=== PATIENT | male | born 1975 | race Caucasian/White ===

== ENCOUNTER 2016-12-16 09:36 | Emergency (ER) | payer SELFPAY ==
[~2016-12-16] VITALS: Ht 170.2 cm; Wt 90.0 kg
[~2016-12-16 09:36] MED LIST: CITA20 PO; IBUP600 PO; OMPR20CCR PO; VITA100L SUCK-ON
[2016-12-16 09:38] VITALS: BP 159/86; PULSE 87; RESP 16; TEMP 97.6; O2SAT 95
[2016-12-16] MEDS ORDERED: CEPH-460 PO (10:00)
[2016-12-16] MEDS ORDERED: CEPHALEXIN MONOHYDRATE 500 MG CAP PO ONE (10:00)
[2016-12-16] MEDS ORDERED: SULFAMETHOXAZOLE-TRIMETHOPRIM DS 800-160 MG TAB PO ONE (10:00)
[2016-12-16] MEDS ORDERED: BACT800T5 PO (10:00)
--- NOTE | 2016-12-16 10:04 | PD ---
HPI Chief Complaint: Skin Problem Time Seen by Provider: 09:57 Travel History International Travel<30 days: No Contact w/Intl Traveler<30days: No Traveled to known affect area: No History of Present Illness HPI 41-year-old male presents to the emergency department for evaluation of possible infection to his right fourth finger. He states he cut his finger with a knife on the dorsal surface over the PIP joint 2 weeks ago. He had some drainage from the area. However, he woke up this morning with a blister to the proximal aspect of the right fourth finger with some mild surrounding erythema. He states he had MRSA in the past and had IV antibiotics so he was concerned. He denies any fevers or chills. He does report a history reflux. He currently takes Prilosec, Celexa, Vistaril. Patient denies any history of IV drug use. No other complaints. Patient states his tetanus immunization is up- to-date. PFSH Past Medical History Depression: Yes GERD: Yes Respiratory: Yes (asthma) Social History Alcohol Use: No Tobacco Use: Yes Substance Use: No Allergies-Medications (Allergen,Severity, Reaction): Coded Allergies: Penicillin (Verified Allergy, Severe, 12/16/16) Reported Meds & Prescriptions Reported Meds & Active Scripts Active Review of Systems Except as stated in HPI: all other systems reviewed are Neg Physical Exam Narrative GENERAL: Well-developed well-nourished male patient, ambulatory. Afebrile. SKIN: Warm and dry. Patient has a small blister noted to the proximal aspect of the right fourth finger with mild surrounding erythema. No fluctuance or induration. No lymphangiitis. HEAD: Normocephalic. Atraumatic. EYES: No scleral icterus. No injection or drainage. NECK: Supple, trachea midline. No JVD or lymphadenopathy. CARDIOVASCULAR: Regular rate and rhythm without murmurs, gallops, or rubs. RESPIRATORY: Breath sounds equal bilaterally. No accessory muscle use. Lungs sounds clear to auscultation. GASTROINTESTINAL: Abdomen soft, non-tender, nondistended. MUSCULOSKELETAL: No cyanosis, or edema. Patient has full range of motion of all digits of the right hand. Patient has a normal grasp strength in the right hand has full sensation to distal right upper extremity. BACK: Nontender without obvious deformity. No CVA tenderness. Data Data Last Documented VS Vital Signs Date Time Temp Pulse Resp B/P Pulse Ox O2 Delivery O2 Flow Rate FiO2 12/16/16 09:38 97.6 87 16 159/86 95 MDM Medical Decision Making Medical Screen Exam Complete: Yes Emergency Medical Condition: Yes Medical Record Reviewed: Yes Differential Diagnosis Abscess versus cellulitis versus blister Narrative Course 41-year-old male presents to the emergency department for evaluation of possible infection to his right fourth finger. Physical exam is consistent with mild cellulitis. Patient is given first dose of Bactrim and Keflex and will be discharged with a prescription for Bactrim and Keflex. He is instructed on proper wound care. The patient is agreeable to this plan. He is instructed to return for any worsening symptoms. Diagnosis Primary Impression: Cellulitis of finger of right hand Referrals: Primary Care Physician call for appointment Patient Instructions: Cellulitis (ED), General Instructions Additional Instructions: Take antibiotics as directed until gone. Bactrim is free at [facility]. Keflex is $4 at [facility]. Clean twice daily with soap and water and apply OTC antibiotic ointment. Warm, moist compresses. Follow up with a primary care provider. Return to the emergency department for any acute, worsening of symptoms. Med/Other Pt SpecificInfo: Prescription(s) given Scripts Cephalexin (Keflex)500 Mg [id number] Mg PO Q6H 10 Days Ref 0 Prov:Lili Mcclure 12/16/16 Sulfamethoxazole-Trimethoprim (Bactrim DS)800-160 Mg Tab1 Tab PO BID #20 TAB Ref 0 Prov:Lili Mcclure 12/16/16 Disposition: 01 DISCHARGE HOME Condition: Stable Lili Mcclure Dec 16, 2016 10:04
== END 2016-12-16 10:54 | disposition home or self-care (01) ==
LOC: NEPB 09:36
DX: L03.011 Cellulitis of right finger (principal)
CPT/HCPCS: 99283

== ENCOUNTER 2016-12-30 11:44 | Emergency (ER) | payer SELFPAY ==
[~2016-12-30] VITALS: Ht 170.2 cm; Wt 90.0 kg
[~2016-12-30 11:44] MED LIST changes: +BACT800T5 PO; +CEPH-460 PO; -CITA20 PO; -IBUP600 PO; -OMPR20CCR PO; -VITA100L SUCK-ON
[2016-12-30 11:46] VITALS: BP 129/86; PULSE 92; RESP 12; TEMP 98.1; O2SAT 95
[2016-12-30 12:30] VITALS: BP 123/75; PULSE 85; RESP 18; TEMP 98.6; O2SAT 96
--- NOTE | 2016-12-30 12:40 | PD ---
HPI . suicide ideation without a plan Chief Complaint: Psychiatric Symptoms Time Seen by Provider: 12:40 Travel History International Travel<30 days: No Contact w/Intl Traveler<30days: No Traveled to known affect area: No History of Present Illness HPI 41-year-old male with history of polysubstance abuse here after he attempted to go to [facility] to enroll in detox program. Apparently patient went to [facility] and was told that there were no beds available. He decided to call a facility in [place] and was transferred to the police and brought to the hospital for suicide ideation. Patient states he is a binge drinker and had 4 days of heavy drinking. He also used cocaine, which he does frequently. Additionally he admits to using heroin and states he may have overdosed as he woke up on the floor with shoulder pain and left eyebrow pain. Today he denies any chest pain, shortness of breath, nausea, vomiting, diaphoresis, abdominal pain, or fatigue. He admits to some left shoulder pain only. PFSH Past Medical History Depression: Yes GERD: Yes Respiratory: Yes (asthma) Social History Alcohol Use: No Tobacco Use: Yes Substance Use: No Allergies-Medications (Allergen,Severity, Reaction): Coded Allergies: Penicillin (Verified Allergy, Severe, 12/16/16) Reported Meds & Prescriptions Reported Meds & Active Scripts Active Keflex (Cephalexin) 500 Mg Cap 500 Mg PO Q6H 10 Days Bactrim DS (Sulfamethoxazole-Trimethoprim) 800-160 Mg Tab 1 Tab PO BID Review of Systems General / Constitutional: No: Fever Eyes: No: Visual changes HENT: No: Headaches Cardiovascular: No: Chest Pain or Discomfort Respiratory: No: Shortness of Breath Gastrointestinal: No: Abdominal Pain Genitourinary: No: Dysuria Musculoskeletal: Positive: Pain (left shoulder pain) Skin: No Rash Neurologic: No: Weakness Psychiatric: No: Depression Endocrine: No: Polydipsia Hematologic/Lymphatic: No: Easy Bruising Physical Exam Narrative GENERAL: AAO x 3, no acute distress, Well-nourished, well-developed patient. SKIN: Warm and dry. No visible rashes or bruising. HEAD: Normocephalic and atraumatic. EYES: No scleral icterus. No injection or drainage. EOM intact, PERRLA. Small abrasion over left eye healed without any evidence of cellulitis. ENT: No nasal drainage noted. Mucous membranes pink. Airway patent. NECK: Supple, trachea midline. No JVD. CARDIOVASCULAR: Regular rate and rhythm without murmurs, gallops, or rubs. RESPIRATORY: Breath sounds equal bilaterally. No accessory muscle use. No rhonchi or rales. GASTROINTESTINAL: Abdomen soft, non-tender, nondistended. EXTREMITIES: No cyanosis or edema. B/L shoulder with no deformities. Full ROM. No crepitus. No signs of dislocation. BACK: Nontender without obvious deformity. No CVA tenderness. PSYCH: AAO x 3, normal affect. Data Data Last Documented VS Vital Signs Date Time Temp Pulse Resp B/P Pulse Ox O2 Delivery O2 Flow Rate FiO2 12/30/16 12:30 98.6 85 18 123/75 96 Room Air Orders Complete Blood Count With Diff (12/30/16 13:00) Comprehensive Metabolic Panel (12/30/16 13:00) Psych Screen (12/30/16 13:00) Drug Screen, Random Urine (12/30/16 13:00) Labs Laboratory Tests Test 12/30/16 12:40 White Blood Count 9.3 TH/MM3 Red Blood Count 4.90 MIL/MM3 Hemoglobin 14.5 GM/DL Hematocrit 41.4 % Mean Corpuscular Volume 84.5 FL Mean Corpuscular Hemoglobin 29.6 PG Mean Corpuscular Hemoglobin 35.0 % Concent Red Cell Distribution Width 13.0 % Platelet Count 198 TH/MM3 Mean Platelet Volume 8.5 FL Neutrophils (%) (Auto) 63.4 % Lymphocytes (%) (Auto) 24.6 % Monocytes (%) (Auto) 9.3 % Eosinophils (%) (Auto) 2.6 % Basophils (%) (Auto) 0.1 % Neutrophils # (Auto) 5.9 TH/MM3 Lymphocytes # (Auto) 2.3 TH/MM3 Monocytes # (Auto) 0.9 TH/MM3 Eosinophils # (Auto) 0.2 TH/MM3 Basophils # (Auto) 0.0 TH/MM3 CBC Comment DIFF FINAL Differential Comment Sodium Level 135 MEQ/L Potassium Level 3.7 MEQ/L Chloride Level 101 MEQ/L Carbon Dioxide Level 30.2 MEQ/L Anion Gap 4 MEQ/L Blood Urea Nitrogen 9 MG/DL Creatinine 0.96 MG/DL Estimat Glomerular Filtration 86 ML/MIN Rate Random Glucose 104 MG/DL Calcium Level 8.3 MG/DL Total Bilirubin 0.6 MG/DL Aspartate Amino Transf 29 U/L (AST/SGOT) Alanine Aminotransferase 33 U/L (ALT/SGPT) Alkaline Phosphatase 56 U/L Total Protein 6.7 GM/DL Albumin 3.4 GM/DL Urine Opiates Screen NEG Urine Barbiturates Screen NEG Urine Amphetamines Screen NEG Urine Benzodiazepines Screen NEG Urine Cocaine Screen POS Urine Cannabinoids Screen NEG MDM Medical Decision Making Medical Screen Exam Complete: Yes Emergency Medical Condition: Yes Medical Record Reviewed: Yes Differential Diagnosis suicidal ideation, depression, polysubstance abuse, anxiety Narrative Course 41-year-old male with history of polysubstance abuse here after he attempted to go to [facility] to enroll in detox program. Apparently patient went to [facility] and was told that there were no beds available. He decided to call a facility in [place] and was transferred to the police and brought to the hospital for suicide ideation. Patient states he is a binge drinker and had 4 days of heavy drinking. He also used cocaine, which he does frequently. Additionally he admits to using heroin and states he may have overdosed as he woke up on the floor with shoulder pain and left eyebrow pain. Today he denies any chest pain, shortness of breath, nausea, vomiting, diaphoresis, abdominal pain, or fatigue. He admits to some left shoulder pain only. Patient seen and examined. Other than a small abrasion over his left eyebrow that is healing he has no other abnormalities on physical exam. Labs are ordered and pending. Labs reviewed and normal. Patient cleared medically for psych treatment. Diagnosis Primary Impression: Suicide ideation Additional Impression: Polysubstance abuse Condition: Stable Dariela Vieira Dec 30, 2016 12:40
[2016-12-30 13:14] LABS: AUTOMATED NEUTROPHIL # 5.9 TH/MM3 (1.8-7.7); BASOPHIL % 0.1 % (0.0-2.0); EOSINOPHIL # 0.2 TH/MM3 (0-0.4); EOSINOPHIL % 2.6 % (0.0-4.0); HEMATOCRIT 41.4 % (39.0-51.0); HEMO FLAGS DIFF FINAL; LYMPH % 24.6 % (9.0-44.0); LYMPHOCYTE # 2.3 TH/MM3 (1.0-4.8); MEAN CELL VOLUME 84.5 FL (80.0-100.0); MEAN CORPUSCULAR HEMOGLOBIN 29.6 PG (27.0-34.0); MONO % 9.3 % (0.0-8.0); NEUT % 63.4 % (16.0-70.0); PLATELET COUNT 198 TH/MM3 (150-450); WHITE BLOOD COUNT 9.3 TH/MM3 (4.0-11.0)
[2016-12-30 13:21] LABS: AMPHETAMINE, URINE NEG (NEG); BARBITURATES, URINE NEG (NEG); COCAINE, URINE POS (NEG)
[2016-12-30 13:27] LABS: ALT (GPT) 33 U/L (12-78); ANION GAP 4 MEQ/L (5-15); AST (GOT) 29 U/L (15-37); BICARBONATE 30.2 MEQ/L (21.0-32.0); BLOOD UREA NITROGEN 9 MG/DL (7-18); CHLORIDE 101 MEQ/L (98-107); GLOMERULAR FILTRATION RATE 86 ML/MIN (>89); POTASSIUM 3.7 MEQ/L (3.5-5.1); SODIUM (NA) 135 MEQ/L (136-145)
[2016-12-30 13:29] LABS: ALKALINE PHOSPHATASE 56 U/L (45-117); TOTAL BILIRUBIN ADULT 0.6 MG/DL (0.2-1.0)
[2016-12-30 16:10] VITALS: BP 128/60; PULSE 96; RESP 18; O2SAT 97
[2016-12-30 18:27] VITALS: BP 140/68; PULSE 84; RESP 18; TEMP 98.6; O2SAT 96
[2016-12-30 22:02] VITALS: BP 138/61; PULSE 84; RESP 17; O2SAT 98
[2016-12-31 02:00] VITALS: BP 113/67; PULSE 72; RESP 19; O2SAT 98
[2016-12-31 06:07] VITALS: BP 137/65; PULSE 63; RESP 18; O2SAT 97
[2016-12-31 09:38] VITALS: BP 137/65; PULSE 63; RESP 18; O2SAT 97
[2016-12-31 10:30] VITALS: BP 113/58; PULSE 67; RESP 16; O2SAT 96
== END 2016-12-31 13:46 | disposition home or self-care (01) ==
LOC: NEPJ 11:44
DX: F19.10 Other psychoactive substance abuse, uncomplicated (principal); J45.909 Unspecified asthma, uncomplicated; K21.9 Gastro-esophageal reflux disease without esophagitis; Z72.0 Tobacco use; M25.512 Pain in left shoulder
CPT/HCPCS: 80053; 80307; 85025; 99283